=== PATIENT | female | born 1985 | race Caucasian/White ===

== ENCOUNTER 2019-05-13 15:01 | Emergency (ER) | payer MEDICAID, OTHER | END 2019-05-13 15:48 | disposition home or self-care (01) | LOC: E/R 15:01 | DX: O26.892 Other specified pregnancy related conditions, second trimester (principal); R40.2142 Coma scale, eyes open, spontaneous, at arrival to emergency department; R40.2362 Coma scale, best motor response, obeys commands, at arrival to emergency department; R00.2 Palpitations; Z3A.28 28 weeks gestation of pregnancy | CPT/HCPCS: 82962; 93005; 99283-25 ==